=== PATIENT | male | born 1985 | race Caucasian/White ===

== ENCOUNTER 2023-01-11 06:30 | Inpatient (IN) | payer BC ==
[~2023-01-11] VITALS: Ht 190.5 cm; Wt 113.4 kg
[2023-01-11] MEDS ORDERED: HYDROMORPHONE 1 MG/1 ML DISP.SYRIN IM ONE (07:00)
[2023-01-11] MEDS ORDERED: HYDROMORPHONE 1 MG/1 ML DISP.SYRIN ONE (07:05)
[2023-01-11] MEDS ORDERED: PROPOFOL 20 ML IV ONE (08:49)
[2023-01-11] MEDS ORDERED: KETAMINE HCL (500MG/10ML) 50 MG/ML VIAL ONE (08:49)
[2023-01-11] MEDS ORDERED: PROPOFOL 200 MG/20 ML VIAL IV ONE (09:00)
[2023-01-11] MEDS ORDERED: KETAMINE HCL(200MG/20ML) 10 MG/ML VIAL IV ONE (09:00)
[2023-01-11] MEDS ORDERED: HYDR-4279 PO (10:00)
[2023-01-11] MEDS ORDERED: IBUP-1955 PO (10:00)
[2023-01-11] MEDS ORDERED: HYDR-3980 PO (10:59)
[2023-01-11] MEDS ORDERED: MORPHINE SULFATE INJ 2 MG/ML DISP.SYRIN IV ONE ×2 (11:00→13:30)
[2023-01-11] MEDS ORDERED: MORPHINE SULFATE INJ 2 MG/ML DISP.SYRIN ONE ×4 (11:05→13:46)
[2023-01-11] MEDS ORDERED: ACETAMINOPHEN 325 MG TABLET PO PRN (18:00)
[2023-01-11] MEDS ORDERED: ONDANSETRON HCL/PF 4 MG/2 ML VIAL IVP PRN (18:00)
[2023-01-11] MEDS ORDERED: Z GUARD REMEDY 4 OZ OINT TP PRN (18:00)
[2023-01-11] MEDS ORDERED: AZAT50TA18 PO (18:12)
[2023-01-11] MEDS ORDERED: BUPR-319 PO (18:12)
[2023-01-11] MEDS ORDERED: SERT50TA12 PO (18:13)
[2023-01-11] MEDS ORDERED: ARIP2TAB19 PO (18:13)
[2023-01-11] MEDS: HYDROMORPHONE INJ 2 MG/ML DISP.SYRIN IV PRN ×2 (18:51→22:18)
[2023-01-11 19:59] LABS: BASOPHILS # (AUTO) 0.1 K/uL (0.0-0.2); BASOPHILS % (AUTO) 0.8 % (0.0-2.0); EOSINOPHILS % (AUTO) 0.4 % (0.0-6.0); HEMATOCRIT 42 % (39-51); HEMOGLOBIN 13.6 g/dL (13.5-17.5); LYMPHOCYTES # (AUTO) 0.5 K/uL (0.8-4.8); LYMPHOCYTES % (AUTO) 6.6 % (20.0-44.0); MEAN CORPUSCULAR HGB CONC 33 g/dl (31.0-36.0); MEAN CORPUSCULAR VOLUME 95 fL (80-96); MONOCYTES # (AUTO) 0.9 K/uL (0.1-1.30); MONOCYTES % (AUTO) 11.1 % (2.0-12.0); NEUTROPHILS # (AUTO) 6.7 K/uL (1.8-8.9); NEUTROPHILS % (AUTO) 81.1 % (43.0-81.0); PLATELET COUNT (AUTO) 202 K/uL (150-450); RED BLOOD CELL COUNT(AUTO) 4.41 MIL/uL (4.5-6.0); WHITE BLOOD COUNT (AUTO) 8.3 K/uL (4.3-11.0)
[2023-01-11 20:00] VITALS: BP 154/89
[2023-01-11 20:13] LABS: ALBUMIN 3.8 g/dL (3.4-5.0); BILIRUBIN,TOTAL 0.8 mg/dL (0.2-1.0); CALCIUM, SERUM 9.2 mg/dL (8.5-10.1); CREATININE 0.9 mg/dL (0.6-1.3); MAGNESIUM 2.3 mg/dL (1.8-2.4); PHOSPHORUS 3.3 mg/dL (2.5-4.9); POTASSIUM 3.6 mmol/L (3.5-5.1); TOTAL PROTEIN, SERUM 7.4 g/dL (6.4-8.2)
[2023-01-12] MEDS: HYDROMORPHONE INJ 2 MG/ML DISP.SYRIN IV PRN ×11 (01:58→23:19)
[2023-01-12] MEDS: IV D5/0.45 NACL 1,000 ML IV PRN ×2 (02:50→13:24)
[2023-01-12 06:58] LABS: BASOPHILS % (AUTO) 0.5 % (0.0-2.0); EOSINOPHILS % (AUTO) 0.5 % (0.0-6.0); HEMATOCRIT 41 % (39-51); HEMOGLOBIN 13.2 g/dL (13.5-17.5); LYMPHOCYTES # (AUTO) 0.5 K/uL (0.8-4.8); LYMPHOCYTES % (AUTO) 6.7 % (20.0-44.0); MEAN CORPUSCULAR HGB CONC 32 g/dl (31.0-36.0); MEAN CORPUSCULAR VOLUME 94 fL (80-96); MONOCYTES # (AUTO) 0.7 K/uL (0.1-1.30); MONOCYTES % (AUTO) 9.6 % (2.0-12.0); NEUTROPHILS # (AUTO) 5.7 K/uL (1.8-8.9); NEUTROPHILS % (AUTO) 82.7 % (43.0-81.0); PLATELET COUNT (AUTO) 209 K/uL (150-450); RED BLOOD CELL COUNT(AUTO) 4.34 MIL/uL (4.5-6.0); WHITE BLOOD COUNT (AUTO) 6.9 K/uL (4.3-11.0)
[2023-01-12 07:36] LABS: CALCIUM, SERUM 8.9 mg/dL (8.5-10.1); CREATININE 0.8 mg/dL (0.6-1.3); MAGNESIUM 2.4 mg/dL (1.8-2.4); PHOSPHORUS 3.2 mg/dL (2.5-4.9); POTASSIUM 3.6 mmol/L (3.5-5.1)
[2023-01-12 08:00] VITALS: BP 198/94
[2023-01-12 16:00] VITALS: BP 165/92
[2023-01-12 20:00] VITALS: BP 190/108
[2023-01-13] MEDS: HYDROMORPHONE INJ 2 MG/ML DISP.SYRIN IV PRN ×9 (01:23→21:57)
[2023-01-13 07:00] VITALS: BP 150/76
[2023-01-13 16:00] VITALS: BP 149/84
[2023-01-13 20:00] VITALS: BP 154/95
[2023-01-13] MEDS: IV D5/0.45 NACL 1,000 ML IV PRN (20:37)
[2023-01-14] VITALS (7 sets, daily range): BP systolic 146–190; BP diastolic 84–112
[2023-01-14] MEDS: HYDROMORPHONE INJ 2 MG/ML DISP.SYRIN IV PRN ×3 (00:50→06:02)
[2023-01-14 07:15] LABS: BASOPHILS % (AUTO) 0.3 % (0.0-2.0); EOSINOPHILS % (AUTO) 1.1 % (0.0-6.0); HEMATOCRIT 42 % (39-51); HEMOGLOBIN 13.9 g/dL (13.5-17.5); LYMPHOCYTES # (AUTO) 0.5 K/uL (0.8-4.8); LYMPHOCYTES % (AUTO) 7.2 % (20.0-44.0); MEAN CORPUSCULAR HGB CONC 33 g/dl (31.0-36.0); MEAN CORPUSCULAR VOLUME 95 fL (80-96); MONOCYTES # (AUTO) 0.8 K/uL (0.1-1.30); NEUTROPHILS # (AUTO) 6.1 K/uL (1.8-8.9); NEUTROPHILS % (AUTO) 80.4 % (43.0-81.0); PLATELET COUNT (AUTO) 226 K/uL (150-450); RED BLOOD CELL COUNT(AUTO) 4.42 MIL/uL (4.5-6.0); WHITE BLOOD COUNT (AUTO) 7.6 K/uL (4.3-11.0)
[2023-01-14 07:36] LABS: CALCIUM, SERUM 9.6 mg/dL (8.5-10.1); CREATININE 0.8 mg/dL (0.6-1.3); POTASSIUM 3.6 mmol/L (3.5-5.1)
[2023-01-14] MEDS ORDERED: BUPIVACAINE 0.5 % PF 150 MG/30 ML VIAL ONE ×2 (09:37→11:38)
[2023-01-14] MEDS ORDERED: BUPIVACAINE 0.25% 75 MG/30 ML VIAL ONE (09:37)
[2023-01-14] MEDS ORDERED: VANCOMYCIN 1 GM VIAL ONE (09:37)
[2023-01-14] MEDS ORDERED: SEVOFLURANE 250 ML BOTTLE IH ONE (12:34)
[2023-01-14] MEDS ORDERED: ONDANSETRON HCL/PF 4 MG/2 ML VIAL ONE ×2 (14:26→14:51)
[2023-01-14] MEDS ORDERED: METOCLOPRAMIDE HCL 10 MG/2 ML VIAL ONE (14:42)
[2023-01-14] MEDS ORDERED: FENTANYL PF 100MCG/2ML AMPUL ONE ×2 (14:57→15:37)
[2023-01-14] MEDS ORDERED: hydrALAZINE HCL IV 20 MG VIAL ONE (15:05)
[2023-01-14] MEDS ORDERED: LABETALOL HCL IV 100MG VIAL ONE (15:21)
[2023-01-14] MEDS ORDERED: MORPHINE SULFATE INJ 4 MG/ML DISP.SYRIN IV PRN (17:00)
[2023-01-14] MEDS ORDERED: NICARDIPINE HCL 50 MG in IV NS 0.9% 230 ML IV PRN (17:30)
[2023-01-14] MEDS ORDERED: hydrALAZINE HCL IV 20 MG VIAL IV PRN (17:30)
[2023-01-14] MEDS: IV D5/0.45 NACL 1,000 ML IV PRN (18:12)
[2023-01-14] MEDS ORDERED: NALOXONE HCL 0.4 MG/ML AMPUL IV PRN (18:30)
[2023-01-14] MEDS: IV D5/0.45 NACL W/20 MEQ KCL 1L IV PRN ×2 (18:34)
[2023-01-14] MEDS: ANCEF 1 GM/50 ML D5W IV SCH ×2 (18:34)
[2023-01-14] MEDS ORDERED: HYDROMORPHONE INJ 2 MG/ML DISP.SYRIN IV ONE (19:00)
[2023-01-14] MEDS ORDERED: IV NS 0.9% 250 ML IV PRN (19:00)
[2023-01-14] MEDS ORDERED: HYDROMORPHONE INJ 2 MG/ML DISP.SYRIN IV PRN (19:30)
[2023-01-14] MEDS: HYDROMORPHONE MDV 30 MG in IV NS 0.9% 15 ML, PCA TOTAL VOLUME 1 BAG IV PRN ×3 (19:32)
[2023-01-14] MEDS: NICARDIPINE IN NACL, ISO-OSM 200 ML IV PRN (23:18)
[2023-01-15] VITALS (43 sets, daily range): BP systolic 126–171; BP diastolic 61–101
[2023-01-15] MEDS: HYDROCODONE/APAP 10/325MG TABLET PO PRN ×2 (00:13→04:16)
[2023-01-15] MEDS: TRAZODONE 50 MG TABLET PO PRN ×2 (00:41→19:57)
[2023-01-15] MEDS: ANCEF 1 GM/50 ML D5W IV SCH ×4 (02:00→09:37)
[2023-01-15] MEDS: NICARDIPINE IN NACL, ISO-OSM 200 ML IV PRN ×2 (02:43→06:12)
[2023-01-15] MEDS: HYDROMORPHONE MDV 30 MG in IV NS 0.9% 15 ML, PCA TOTAL VOLUME 1 BAG IV PRN ×3 (07:34)
[2023-01-15] MEDS: IV D5/0.45 NACL W/20 MEQ KCL 1L IV PRN ×4 (08:42→21:57)
[2023-01-15] MEDS: METOPROLOL TARTRATE 50 MG TABLET PO SCH ×4 (10:19→23:53)
[2023-01-15] MEDS ORDERED: ZOLPIDEM TARTRATE 10 MG TABLET PO PRN (23:30)
[2023-01-15] MEDS ORDERED: ZOLPIDEM TARTRATE 5 MG TABLET ONE (23:42)
[2023-01-16] VITALS (25 sets, daily range): BP systolic 124–148; BP diastolic 58–85
[2023-01-16] MEDS: HYDROCODONE/APAP 10/325MG TABLET PO PRN ×3 (02:39→16:38)
[2023-01-16 05:03] LABS: BASOPHILS # (AUTO) 0.1 K/uL (0.0-0.2); BASOPHILS % (AUTO) 0.7 % (0.0-2.0); EOSINOPHILS % (AUTO) 0.5 % (0.0-6.0); HEMATOCRIT 35 % (39-51); HEMOGLOBIN 11.6 g/dL (13.5-17.5); LYMPHOCYTES # (AUTO) 0.4 K/uL (0.8-4.8); LYMPHOCYTES % (AUTO) 4.1 % (20.0-44.0); MEAN CORPUSCULAR HGB CONC 33 g/dl (31.0-36.0); MEAN CORPUSCULAR VOLUME 93 fL (80-96); MONOCYTES # (AUTO) 1.2 K/uL (0.1-1.30); MONOCYTES % (AUTO) 11.8 % (2.0-12.0); NEUTROPHILS # (AUTO) 8.5 K/uL (1.8-8.9); NEUTROPHILS % (AUTO) 82.9 % (43.0-81.0); PLATELET COUNT (AUTO) 224 K/uL (150-450); RED BLOOD CELL COUNT(AUTO) 3.76 MIL/uL (4.5-6.0); WHITE BLOOD COUNT (AUTO) 10.2 K/uL (4.3-11.0)
[2023-01-16 05:33] LABS: CALCIUM, SERUM 8.8 mg/dL (8.5-10.1); CREATININE 0.7 mg/dL (0.6-1.3); POTASSIUM 3.8 mmol/L (3.5-5.1)
[2023-01-16] MEDS: METOPROLOL TARTRATE 50 MG TABLET PO SCH ×3 (05:33→18:27)
[2023-01-16] MEDS: HYDROMORPHONE INJ 2 MG/ML DISP.SYRIN IV PRN ×3 (12:57→22:30)
[2023-01-16] MEDS: ZOLPIDEM TARTRATE 5 MG TABLET PO PRN (21:26)
[2023-01-17] VITALS (12 sets, daily range): BP systolic 123–159; BP diastolic 56–159
[2023-01-17] MEDS: METOPROLOL TARTRATE 50 MG TABLET PO SCH ×4 (01:11→19:15)
[2023-01-17] MEDS: HYDROMORPHONE INJ 2 MG/ML DISP.SYRIN IV PRN ×7 (01:32→22:22)
[2023-01-17 06:15] LABS: BASOPHILS % (AUTO) 0.2 % (0.0-2.0); HEMATOCRIT 34 % (39-51); HEMOGLOBIN 11.5 g/dL (13.5-17.5); LYMPHOCYTES # (AUTO) 0.4 K/uL (0.8-4.8); LYMPHOCYTES % (AUTO) 5.5 % (20.0-44.0); MEAN CORPUSCULAR HGB CONC 34 g/dl (31.0-36.0); MEAN CORPUSCULAR VOLUME 92 fL (80-96); MONOCYTES # (AUTO) 0.9 K/uL (0.1-1.30); MONOCYTES % (AUTO) 11.9 % (2.0-12.0); NEUTROPHILS # (AUTO) 6.4 K/uL (1.8-8.9); NEUTROPHILS % (AUTO) 81.4 % (43.0-81.0); PLATELET COUNT (AUTO) 231 K/uL (150-450); RED BLOOD CELL COUNT(AUTO) 3.69 MIL/uL (4.5-6.0); WHITE BLOOD COUNT (AUTO) 7.8 K/uL (4.3-11.0)
[2023-01-17 06:25] LABS: CALCIUM, SERUM 8.4 mg/dL (8.5-10.1); CREATININE 0.7 mg/dL (0.6-1.3); POTASSIUM 3.4 mmol/L (3.5-5.1)
[2023-01-17] MEDS ORDERED: POTASSIUM CHLORIDE 20 MEQ TAB.PRT.SR PO ONE (10:00)
[2023-01-17] MEDS: POTASSIUM CHLORIDE 20 MEQ TAB.PRT.SR PO SCH ×2 (11:19→12:33)
[2023-01-17] MEDS: ZOLPIDEM TARTRATE 5 MG TABLET PO PRN (21:11)
[2023-01-18] VITALS: BP 136/77
[2023-01-18] MEDS: HYDROMORPHONE INJ 2 MG/ML DISP.SYRIN IV PRN ×2 (03:10→09:02)
[2023-01-18 04:00] VITALS: BP 142/76
[2023-01-18] MEDS: METOPROLOL TARTRATE 50 MG TABLET PO SCH ×2 (05:10)
[2023-01-18 06:46] LABS: BASOPHILS % (AUTO) 0.3 % (0.0-2.0); EOSINOPHILS % (AUTO) 0.9 % (0.0-6.0); HEMATOCRIT 36 % (39-51); HEMOGLOBIN 11.9 g/dL (13.5-17.5); LYMPHOCYTES # (AUTO) 0.5 K/uL (0.8-4.8); LYMPHOCYTES % (AUTO) 6.6 % (20.0-44.0); MEAN CORPUSCULAR HGB CONC 33 g/dl (31.0-36.0); MEAN CORPUSCULAR VOLUME 93 fL (80-96); MONOCYTES % (AUTO) 12.7 % (2.0-12.0); NEUTROPHILS # (AUTO) 6.3 K/uL (1.8-8.9); NEUTROPHILS % (AUTO) 79.5 % (43.0-81.0); PLATELET COUNT (AUTO) 305 K/uL (150-450); RED BLOOD CELL COUNT(AUTO) 3.87 MIL/uL (4.5-6.0); WHITE BLOOD COUNT (AUTO) 7.9 K/uL (4.3-11.0)
[2023-01-18 06:55] LABS: CALCIUM, SERUM 8.9 mg/dL (8.5-10.1); CREATININE 0.7 mg/dL (0.6-1.3); MAGNESIUM 2.2 mg/dL (1.8-2.4); POTASSIUM 3.8 mmol/L (3.5-5.1)
[2023-01-18 08:00] VITALS: BP 145/83
== END 2023-01-18 12:04 | disposition home health service (06) | DRG 493 ==
LOC: ER 06:32 → MED 17:39 → ICU 01-14 16:48 → TELE1 01-16 19:02
PROVIDERS: ADMIT Nurse Practitioner Acute Care; ATTEND Nurse Practitioner Acute Care
PROC: 0PSL04Z Reposition Left Ulna with Internal Fixation Device, Open Approach (ICD-10-PCS; principal; 2023-01-14)
PROC: 0PSG04Z Reposition Left Humeral Shaft with Internal Fixation Device, Open Approach (ICD-10-PCS; principal; 2023-01-14)
PROC: 0PSH04Z Reposition Right Radius with Internal Fixation Device, Open Approach (ICD-10-PCS; principal; 2023-01-14)
DX: S42.432A Displaced fracture (avulsion) of lateral epicondyle of left humerus, initial encounter for closed fracture (principal); S52.571A Other intraarticular fracture of lower end of right radius, initial encounter for closed fracture; S42.452A Displaced fracture of lateral condyle of left humerus, initial encounter for closed fracture; S52.042A Displaced fracture of coronoid process of left ulna, initial encounter for closed fracture; S52.025A Nondisplaced fracture of olecranon process without intraarticular extension of left ulna, initial encounter for closed fracture; W18.30XA Fall on same level, unspecified, initial encounter; I16.0 Hypertensive urgency; R00.0 Tachycardia, unspecified; Z20.822 Contact with and (suspected) exposure to COVID-19
CPT/HCPCS: 36415; 73070-TC; 73080-TC; 73100-TC; 73110; 73200-TC; 80048-TC; 80053-TC; 83735-TC; 84100-TC; 85025-TC; 85610-TC; 85730-TC; 87081-TC; 97112-TC; 97116-TC; 97530-TC; A4223; A6253; C9803; G0378; G0500; J0360; J0690; J1100; J1170; J2270; J2405; J2704; J2765; J3010; J3370; J3480; J3490; J7030; J7050; J7060